=== PATIENT | female | born 1970 | race American Indian/Alaskan Native ===

== ENCOUNTER 2018-11-17 11:00 | Observation (INO) | payer OTHER ==
--- NOTE | 2018-11-17 11:37 | Emergency Department Report ---
Chief Complaint: Chest Pain Stated Complaint: L SIDE CHEST PAIN Time Seen by Provider: 11/17/18 11:33 - HPI History of Present Illness: mse completed - Exam Vital Signs: Vital Signs 11/17/18 11:33 Temperature 98.8 F Pulse Rate 72 Respiratory 20 Rate Blood Pressure 209/107 [Right] O2 Sat by Pulse 100 Oximetry MSE screening note: Focused history and physical exam performed. Due to findings the following was ordered: ED Disposition for MSE Condition: Stable
--- NOTE | 2018-11-17 11:50 | XRay Report ---
ROUTINE CHEST, TWO VIEWS: HISTORY: chest pain. The trachea, heart, mediastinal contour, lung [place] and bony thorax are unremarkable. No significant change since 12/21/17. IMPRESSION: Unremarkable chest x-ray.
[2018-11-17 12:36] LABS: Basophils % (Auto) 0.9 % (0.0-1.8); Eosinophils # (Auto) 0.5 K/mm3 (0.0-0.4); Eosinophils % (Auto) 9.5 % (0.0-4.3); Hematocrit 38.3 % (30.3-42.9); Hemoglobin 13.3 gm/dl (10.1-14.3); Lymphocytes % (Auto) 41.7 % (13.4-35.0); Mean Corpuscular HGB Conc 35 % (30-34); Mean Corpuscular Volume 95 fl (79-97); Monocytes # (Auto) 0.4 K/mm3 (0.0-0.8); Monocytes % (Auto) 7.6 % (0.0-7.3); Platelet Count 211 K/mm3 (140-440); Red Blood Count 4.02 M/mm3 (3.65-5.03)
[2018-11-17] MEDS ORDERED: ASPIRIN PO ONE (12:38)
[2018-11-17] MEDS ORDERED: NITRO-BID 2% TP ONE (12:38)
[2018-11-17 12:52] LABS: Alanine Aminotransferase 18 units/L (7-56); Albumin 3.9 g/dL (3.9-5); BUN/Creatinine Ratio 16; Blood Urea Nitrogen 13 mg/dL (7-17); Calcium 9.3 mg/dL (8.4-10.2); Hemolysis Index 13; INR 0.96 (0.87-1.13)
[2018-11-17 12:53] LABS: Partial Thromboplastin Time 32.6 Sec. (24.2-36.6)
[2018-11-17] MEDS ORDERED: TORADOL IV ONE (12:54)
[2018-11-17] MEDS ORDERED: MORPHINE IV ONE (12:54)
[2018-11-17] MEDS ORDERED: ZOFRAN IV ONE (12:54)
--- NOTE | 2018-11-17 13:24 | Emergency Department Report ---
ED Chest Pain HPI - General Chief Complaint: Chest Pain Stated Complaint: L SIDE CHEST PAIN Time Seen by Provider: 11/17/18 11:33 Source: patient Mode of arrival: Ambulatory Limitations: No Limitations - History of Present Illness Initial Comments: 48 year-old patient with a past medical history hypertension, CVA with residual right-sided deficits presents to the hospital with complaints of chest pain since yesterday. Patient was sent for Dr. Mingo Vaca's office for chest pain evaluation. Since yesterday she has had constant left-sided chest pain that is sharp in nature, rated 8/10 in intensity, worse with palpation, worse with movement, and without any alleviating factors. Patient takes aspirin 325 mg daily for previous CVA. She denies cardiac history, history of PE/DVT, edema, or leg pain. Severity scale (0 -10): 8 - Related Data Previous Rx's Medication Instructions Recorded Last Taken Type Aspirin EC [Aspirin Enteric Coated 81 mg PO QDAY #30 tablet. 12/24/17 Unknown Rx TAB] AtorvaSTATin [Lipitor] 40 mg PO QHS #30 tablet 12/24/17 Unknown Rx Lisinopril [Zestril TAB] 40 mg PO BID #60 tablet 12/24/17 Unknown Rx amLODIPine [Norvasc] 10 mg PO QDAY #30 tablet 12/24/17 Unknown Rx Allergies Allergy/AdvReac Type Severity Reaction Status Date / Time acetaminophen [From Percocet] Allergy Unknown Verified 12/21/17 21:34 alteplase Allergy Angioedema Verified 12/23/17 11:43 oxycodone [From Percocet] Allergy Unknown Verified 12/21/17 21:34 Heart Score - HEART Score History: Slightly suspicious EKG: Non-specific Age: 45-65 Risk factors: 1-2 risk factors Troponin: < normal limit HEART Score: 3 ED Review of Systems ROS: Stated complaint: L SIDE CHEST PAIN Other details as noted in HPI Comment: All other systems reviewed and negative ED Past Medical Hx - Past Medical History Previous Medical History?: Yes Hx Hypertension: Yes Hx CVA: Yes (right side weakness) Hx Congestive Heart Failure: No Hx Diabetes: No Hx Asthma: No Hx COPD: No - Surgical History Past Surgical History?: Yes Additional Surgical History: partial hysterectomy - Social History Smoking Status: Never Smoker Substance Use Type: None - Medications Home Medications: Home Medications Medication Instructions Recorded Confirmed Last Taken Type Aspirin EC [Aspirin Enteric Coated 81 mg PO QDAY #30 tablet. 12/24/17 Unknown Rx TAB] AtorvaSTATin [Lipitor] 40 mg PO QHS #30 tablet 12/24/17 Unknown Rx Lisinopril [Zestril TAB] 40 mg PO BID #60 tablet 12/24/17 Unknown Rx amLODIPine [Norvasc] 10 mg PO QDAY #30 tablet 12/24/17 Unknown Rx ED Physical Exam - General Limitations: No Limitations - Other Other exam information: General: No limitations, patient is alert in no acute distress Head exam: Atraumatic, normocephalic Eyes exam: Normal appearance ENT: Moist mucous membrane, normal oropharynx Neck exam: Normal inspection, full range of motion, no meningismus nontender Respiratory exam: Clear to auscultation bilateral, no wheezes, rales, crackles Cardiovascular: Normal rate and rhythm, normal heart sounds. Reproducible left- sided chest wall tenderness Abdomen: Soft, nondistended, and nontender, with normal bowel sounds, no rebound, or guarding Extremity: Full range of motion normal inspection no deformity, no calf tenderness or edema Back: Normal Inspection, full range of motion, no tenderness Neurologic: Alert, oriented x3, cranial nerves intact, no motor or sensory deficit Psychiatric: normal affect, normal mood Skin: Warm, dry, intact ED Course Vital Signs 11/17/18 11/17/18 11/17/18 11:33 12:06 12:16 Temperature 98.8 F Pulse Rate 72 60 62 Respiratory 20 14 18 Rate Blood Pressure 195/97 Blood Pressure 209/107 [Right] O2 Sat by Pulse 100 100 100 Oximetry 11/17/18 11/17/18 11/17/18 12:30 12:46 13:48 Temperature Pulse Rate 59 L 71 71 Respiratory 12 13 16 Rate Blood Pressure 195/97 195/97 195/97 Blood Pressure [Right] O2 Sat by Pulse 100 100 100 Oximetry 11/17/18 14:00 Temperature Pulse Rate 74 Respiratory 14 Rate Blood Pressure 195/97 Blood Pressure [Right] O2 Sat by Pulse 100 Oximetry ED Medical Decision Making - Lab Data Result diagrams: 11/17/18 12:21 11/17/18 12:21 Lab Results 11/17/18 11/17/18 11/17/18 Range/Units 12:21 12:21 12:21 WBC 4.9 (4.5-11.0) K/mm3 RBC 4.02 (3.65-5.03) M/mm3 Hgb 13.3 (10.1-14.3) gm/dl Hct 38.3 (30.3-42.9) % MCV 95 (79-97) fl MCH 33 H (28-32) pg MCHC 35 H (30-34) % RDW 13.0 L (13.2-15.2) % Plt Count 211 (140-440) K/mm3 Lymph % (Auto) 41.7 H (13.4-35.0) % [place] % (Auto) 7.6 H (0.0-7.3) % Eos % (Auto) 9.5 H (0.0-4.3) % Baso % (Auto) 0.9 (0.0-1.8) % Lymph # 2.0 (1.2-5.4) K/mm3 [place] # 0.4 (0.0-0.8) K/mm3 Eos # 0.5 H (0.0-0.4) K/mm3 Baso # 0.0 (0.0-0.1) K/mm3 Seg Neutrophils % 40.3 (40.0-70.0) % Seg Neutrophils # 2.0 (1.8-7.7) K/mm3 PT 13.4 (12.2-14.9) Sec. INR 0.96 (0.87-1.13) APTT 32.6 (24.2-36.6) Sec. D-Dimer (0-234) ng/mlDDU Sodium 140 (137-145) mmol/L Potassium 3.9 (3.6-5.0) mmol/L Chloride 104.2 (98-107) mmol/L Carbon Dioxide 26 (22-30) mmol/L Anion Gap 14 mmol/L BUN 13 (7-17) mg/dL Creatinine 0.8 (0.7-1.2) mg/dL Estimated GFR > 60 ml/min BUN/Creatinine Ratio 16 % Glucose 90 (65-100) mg/dL Calcium 9.3 (8.4-10.2) mg/dL Total Bilirubin 0.50 (0.1-1.2) mg/dL AST 18 (5-40) units/L ALT 18 (7-56) units/L Alkaline Phosphatase 49 (35-129) units/L Troponin T < 0.010 (0.00-0.029) ng/mL Total Protein 7.1 (6.3-8.2) g/dL Albumin 3.9 (3.9-5) g/dL Albumin/Globulin Ratio 1.2 % 11/17/18 Range/Units 12:21 WBC (4.5-11.0) K/mm3 RBC (3.65-5.03) M/mm3 Hgb (10.1-14.3) gm/dl Hct (30.3-42.9) % MCV (79-97) fl MCH (28-32) pg MCHC (30-34) % RDW (13.2-15.2) % Plt Count (140-440) K/mm3 Lymph % (Auto) (13.4-35.0) % [place] % (Auto) (0.0-7.3) % Eos % (Auto) (0.0-4.3) % Baso % (Auto) (0.0-1.8) % Lymph # (1.2-5.4) K/mm3 [place] # (0.0-0.8) K/mm3 Eos # (0.0-0.4) K/mm3 Baso # (0.0-0.1) K/mm3 Seg Neutrophils % (40.0-70.0) % Seg Neutrophils # (1.8-7.7) K/mm3 PT (12.2-14.9) Sec. INR (0.87-1.13) APTT (24.2-36.6) Sec. D-Dimer < 135.00 (0-234) ng/mlDDU Sodium (137-145) mmol/L Potassium (3.6-5.0) mmol/L Chloride (98-107) mmol/L Carbon Dioxide (22-30) mmol/L Anion Gap mmol/L BUN (7-17) mg/dL Creatinine (0.7-1.2) mg/dL Estimated GFR ml/min BUN/Creatinine Ratio % Glucose (65-100) mg/dL Calcium (8.4-10.2) mg/dL Total Bilirubin (0.1-1.2) mg/dL AST (5-40) units/L ALT (7-56) units/L Alkaline Phosphatase (35-129) units/L Troponin T (0.00-0.029) ng/mL Total Protein (6.3-8.2) g/dL Albumin (3.9-5) g/dL Albumin/Globulin Ratio % - EKG Data -: EKG Interpreted by Me EKG shows normal: sinus rhythm, axis (qrs 2), QRS complexes (qrsd 91), ST-T waves (no stemi/t inv) Rate: normal (65) - EKG Data When compared to previous EKG there are: no significant change - Radiology Data Radiology results: report reviewed ROUTINE CHEST, TWO VIEWS: HISTORY: chest pain. The trachea, heart, mediastinal contour, lung [place] and bony thorax are unremarkable. No significant change since 12/21/17. IMPRESSION: Unremarkable chest x-ray. - Medical Decision Making probable chest wall pain but risk factors neg trop x1, ddimer, neg cxr - Differential Diagnosis mi, unstable cp, pulm embolism ,chest wall pain Critical Care Time: No Critical care attestation.: If time is entered above; I have spent that time in minutes in the direct care of this critically ill patient, excluding procedure time. ED Disposition Clinical Impression: Left-sided chest pain, HTN (hypertension) Disposition: DC-09 OP ADMIT IP TO THIS HOSP Is pt being admited?: Yes Does the pt Need Aspirin: Yes Condition: Stable Time of Disposition: 13:23 (Dr Roger/hosp)
[2018-11-17] MEDS ORDERED: IBUPROFEN PO PRN (14:22)
[2018-11-17] MEDS ORDERED: ZOFRAN IV PRN (14:22)
[2018-11-17] MEDS ORDERED: SODIUM CHLORIDE FLUSH SYRINGE 10 ML IV PRN ×2 (14:22→14:38)
[2018-11-17] MEDS ORDERED: NITROSTAT SL PRN (14:38)
--- NOTE | 2018-11-17 14:51 | History and Physical Report ---
<SUJEY BARBER - Last Filed: 11/17/18 16:13> History of Present Illness Date of examination: 11/17/18 Date of admission: 11/17/18 13:34 Chief complaint: Left sided Chest Pain History of present illness: 48 y.o. 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 She rates her pain as 8/10, worse with palpation and exertion. There are no alleviating factors. Pt was admitted in November 2017 for suspicion of CVA. CT Head was done on 12/23/17. It was unrevealing for an acute CVA, intracrainal hemorrhage, or brain mass. An MRI brain was also done on 12/22/17 and it was unremarkable, and showed non-specific chronic white matter changes. She denies cardiac history, SOB, cough, history of PE/DVT, edema, or leg pain. Past History Past Medical History: hypertension, seizures, stroke Past Surgical History: hysterectomy Social history: no significant social history Family history: hypertension Medications and Allergies Allergies Allergy/AdvReac Type Severity Reaction Status Date / Time acetaminophen [From Percocet] Allergy Unknown Verified 12/21/17 21:34 alteplase Allergy Angioedema Verified 12/23/17 11:43 oxycodone [From Percocet] Allergy Unknown Verified 12/21/17 21:34 Home Medications Medication Instructions Recorded Confirmed Last Taken Type Divalproex Dr [DepToi DR] 250 mg PO BID 11/17/18 11/17/18 Unknown History Labetalol [Normodyne] 200 mg PO BID 11/17/18 11/17/18 Unknown History Losartan/Hydrochlorothiazide 1 each PO QDAY 11/17/18 11/17/18 Unknown History [Losartan-Hctz 100-25 mg Tab] NIFEdipine [Nifedipine ER] 60 mg PO QDAY 11/17/18 11/17/18 Unknown History Topiramate [Topamax] 100 mg PO BID 11/17/18 11/17/18 Unknown History diazePAM [Diazepam] 5 mg PO HS 11/17/18 11/17/18 Unknown History Active Meds: Active Medications Aspirin (Halfprin Ec) 81 mg PO QDAY [facility] Atorvastatin Calcium (Lipitor) 40 mg PO QHS [facility] Diazepam (Valium) 5 mg PO HS [facility] Divalproex Sodium (Depakote Dr) 250 mg PO BID [facility] Docusate Sodium (Colace) 100 mg PO BID [facility] Enoxaparin Sodium (Lovenox) 40 mg SUB-Q QDAY@2200 [facility] Ibuprofen (Motrin) 600 mg PO Q6H PRN PRN Reason: Pain, Mild (1-3) Lisinopril (Zestril) 40 mg PO BID [facility] Morphine Sulfate (Morphine) 2 mg IV Q4H PRN PRN Reason: Pain, Moderate (4-6) Stop: 11/18/18 23:59 Nitroglycerin (Nitrostat) 0.4 mg SL Q5M PRN PRN Reason: Chest Pain Ondansetron HCl (Zofran) 4 mg IV Q8H PRN PRN Reason: Nausea And Vomiting Sodium Chloride (Sodium Chloride Flush Syringe 10 Ml) 10 ml IV BID [facility] Sodium Chloride (Sodium Chloride Flush Syringe 10 Ml) 10 ml IV PRN PRN PRN Reason: LINE FLUSH Sodium Chloride (Sodium Chloride Flush Syringe 10 Ml) 10 ml IV PRN PRN PRN Reason: LINE FLUSH Topiramate (Topamax) 100 mg PO BID [facility] Review of Systems Constitutional: no weight loss, no weight gain, no fever, no chills, no night sweats Ears, nose, mouth and throat: no tinnitis, no decreased hearing, no nasal congestion, no nasal discharge Breasts: deferred Cardiovascular: chest pain, no palpitations, no rapid/irregular heart beat, no edema, no dyspnea on exertion Respiratory: shortness of breath, no cough, no hemoptysis Genitourinary Female: no dyspareunia, no dysuria, no urinary frequency, no urgency Menstruation: post hysterectomy Rectal: no pain, no incontinence, no itching Musculoskeletal: no low back pain, no shooting leg pain, no leg numbness/tingling Integumentary: no rash, no redness, no sores Neurological: no head injury, no paralysis, no weakness Psychiatric: no anxiety, no change in sleep habits, no sleep disturbances, no insomnia Endocrine: no polyphagia, no polydipsia, no polyuria, no nocturia Hematologic/Lymphatic: no easy bruising, no easy bleeding Allergic/Immunologic: no urticaria, no wheezing, no seasonal allergies Exam - Constitutional Vitals: Temp Pulse Resp BP Pulse Ox 98.8 F 74 14 195/97 100 11/17/18 11:33 11/17/18 14:00 11/17/18 14:00 11/17/18 14:00 11/17/18 14:00 General appearance: Present: no acute distress - EENT Eyes: Present: PERRL, EOM intact ENT: hearing intact, clear oral mucosa, dentition normal - Neck Neck: Present: supple, normal ROM - Respiratory Respiratory effort: normal Respiratory: bilateral: CTA - Cardiovascular Heart Sounds: Present: S1 & S2 - Extremities Extremities: no ischemia, pulses intact, No edema Peripheral Pulses: within normal limits - Abdominal General gastrointestinal: Present: soft, non-tender, normal bowel sounds Female genitourinary: Present: deferred - Rectal Rectal Exam: deferred - Integumentary Integumentary: Present: clear, warm, dry - Musculoskeletal Musculoskeletal: right sided weakness - Psychiatric Psychiatric: appropriate mood/affect, intact judgment & insight, cooperative - Neurologic Neurologic: CNII-XII intact, moves all extremities Results - Labs CBC & Chem 7: 11/17/18 12:21 11/17/18 12:21 Labs: Laboratory Last Values WBC 4.9 K/mm3 (4.5-11.0) 11/17/18 12:21 RBC 4.02 M/mm3 (3.65-5.03) 11/17/18 12:21 Hgb 13.3 gm/dl (10.1-14.3) 11/17/18 12:21 Hct 38.3 % (30.3-42.9) 11/17/18 12:21 MCV 95 fl (79-97) 11/17/18 12:21 MCH 33 pg (28-32) H 11/17/18 12:21 MCHC 35 % (30-34) H 11/17/18 12:21 RDW 13.0 % (13.2-15.2) L 11/17/18 12:21 Plt Count 211 K/mm3 (140-440) 11/17/18 12:21 Lymph % (Auto) 41.7 % (13.4-35.0) H 11/17/18 12:21 [place] % (Auto) 7.6 % (0.0-7.3) H 11/17/18 12:21 Eos % (Auto) 9.5 % (0.0-4.3) H 11/17/18 12:21 Baso % (Auto) 0.9 % (0.0-1.8) 11/17/18 12:21 Lymph # 2.0 K/mm3 (1.2-5.4) 11/17/18 12:21 [place] # 0.4 K/mm3 (0.0-0.8) 11/17/18 12:21 Eos # 0.5 K/mm3 (0.0-0.4) H 11/17/18 12:21 Baso # 0.0 K/mm3 (0.0-0.1) 11/17/18 12:21 Seg Neutrophils % 40.3 % (40.0-70.0) 11/17/18 12:21 Seg Neutrophils # 2.0 K/mm3 (1.8-7.7) 11/17/18 12:21 PT 13.4 Sec. (12.2-14.9) 11/17/18 12:21 INR 0.96 (0.87-1.13) 11/17/18 12:21 APTT 32.6 Sec. (24.2-36.6) 11/17/18 12:21 D-Dimer < 135.00 ng/mlDDU (0-234) 11/17/18 12:21 Sodium 140 mmol/L (137-145) 11/17/18 12:21 Potassium 3.9 mmol/L (3.6-5.0) 11/17/18 12:21 Chloride 104.2 mmol/L (98-107) 11/17/18 12:21 Carbon Dioxide 26 mmol/L (22-30) 11/17/18 12:21 Anion Gap 14 mmol/L 11/17/18 12:21 BUN 13 mg/dL (7-17) 11/17/18 12:21 Creatinine 0.8 mg/dL (0.7-1.2) 11/17/18 12:21 Estimated GFR > 60 ml/min 11/17/18 12:21 BUN/Creatinine Ratio 16 % 11/17/18 12:21 Glucose 90 mg/dL (65-100) 11/17/18 12:21 Calcium 9.3 mg/dL (8.4-10.2) 11/17/18 12:21 Total Bilirubin 0.50 mg/dL (0.1-1.2) 11/17/18 12:21 AST 18 units/L (5-40) 11/17/18 12:21 ALT 18 units/L (7-56) 11/17/18 12:21 Alkaline Phosphatase 49 units/L (35-129) 11/17/18 12:21 Troponin T < 0.010 ng/mL (0.00-0.029) 11/17/18 12:21 Total Protein 7.1 g/dL (6.3-8.2) 11/17/18 12:21 Albumin 3.9 g/dL (3.9-5) 11/17/18 12:21 Albumin/Globulin Ratio 1.2 % 11/17/18 12:21 Assessment and Plan Assessment and plan: 48 y.o. 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 She rates her pain as 8/10, worse with palpation and exertion. There are no alleviating factors. Pt will be admitted to Telemetry floor with plans for Lexiscan/ Stress Testing in the morning. Chest Pain- Left Sided Hypertensive Urgency Hx of Seizures Hx of CVA- right sided weakness Plan: Admit to Tele floor with continuos telemetry monitoring Today's CXR did not reveal any acute cardiopulmonary abnormalities Today's EKG preliminary read reveals borderline prolong QT interval with Left Atrial enlargement Troponin x1 negative; pending Troponin x2 D-Dimer negative Stress Testing ordered for tomorrow morning Lipid Panel pending Resume home anti-convuslant medication Monitor BP Continue anti-hypertensive meds to optimize BP Continue pain management DVT PPX- Lovenox Advance Directives: No VTE prophylaxis?: Chemical Plan of care discussed with patient/family: Yes <FABIO WRIGHT - Last Filed: 11/17/18 16:53> History of Present Illness Date of admission: 11/17/18 13:34 Past History Past Medical History: hypertension, seizures, stroke Past Surgical History: hysterectomy Social history: no significant social history Family history: hypertension (family is an elderly individual was.) Medications and Allergies Active Meds: Active Medications Aspirin (Halfprin Ec) 81 mg PO QDAY [facility] Atorvastatin Calcium (Lipitor) 40 mg PO QHS [facility] Diazepam (Valium) 5 mg PO HS [facility] Divalproex Sodium (Depakote Dr) 250 mg PO BID [facility] Docusate Sodium (Colace) 100 mg PO BID [facility] Enoxaparin Sodium (Lovenox) 40 mg SUB-Q QDAY@2200 [facility] Hydralazine HCl (Apresoline) 10 mg IV Q4HR PRN PRN Reason: Blood Pressure Ibuprofen (Motrin) 600 mg PO Q6H PRN PRN Reason: Pain, Mild (1-3) Lisinopril (Zestril) 40 mg PO BID [facility] Morphine Sulfate (Morphine) 2 mg IV Q4H PRN PRN Reason: Pain, Moderate (4-6) Stop: 11/18/18 23:59 Nitroglycerin (Nitrostat) 0.4 mg SL Q5M PRN PRN Reason: Chest Pain Ondansetron HCl (Zofran) 4 mg IV Q8H PRN PRN Reason: Nausea And Vomiting Sodium Chloride (Sodium Chloride Flush Syringe 10 Ml) 10 ml IV BID [facility] Sodium Chloride (Sodium Chloride Flush Syringe 10 Ml) 10 ml IV PRN PRN PRN Reason: LINE FLUSH Sodium Chloride (Sodium Chloride Flush Syringe 10 Ml) 10 ml IV PRN PRN PRN Reason: LINE FLUSH Topiramate (Topamax) 100 mg PO BID [facility] Review of Systems Ears, nose, mouth and throat: no nasal congestion Exam - Constitutional Vitals: Temp Pulse Resp BP Pulse Ox 98.8 F 60 14 195/97 100 11/17/18 11:33 11/17/18 15:30 11/17/18 15:30 11/17/18 15:30 11/17/18 15:30 General appearance: Present: no acute distress, well-nourished - EENT Eyes: Present: PERRL ENT: hearing intact, clear oral mucosa - Neck Neck: Present: supple, normal ROM - Respiratory Respiratory effort: normal Respiratory: bilateral: CTA - Cardiovascular Heart rate: 64 (Chest wall tenderness inf sternal) Rhythm: regular Heart Sounds: Present: S1 & S2. Absent: rub, click - Extremities Extremities: pulses symmetrical, No edema Peripheral Pulses: within normal limits - Abdominal General gastrointestinal: Present: soft, non-tender, non-distended, normal bowel sounds Female genitourinary: Present: normal - Integumentary Integumentary: Present: clear, warm, dry - Musculoskeletal Musculoskeletal: right sided weakness - Psychiatric Psychiatric: appropriate mood/affect, intact judgment & insight - Neurologic Neurologic: CNII-XII intact, moves all extremities - Allied Health Allied health notes reviewed: nursing, case management Results - Labs CBC & Chem 7: 11/17/18 12:21 11/17/18 12:21 Labs: Laboratory Last Values WBC 4.9 K/mm3 (4.5-11.0) 11/17/18 12:21 RBC 4.02 M/mm3 (3.65-5.03) 11/17/18 12:21 Hgb 13.3 gm/dl (10.1-14.3) 11/17/18 12:21 Hct 38.3 % (30.3-42.9) 11/17/18 12:21 MCV 95 fl (79-97) 11/17/18 12:21 MCH 33 pg (28-32) H 11/17/18 12:21 MCHC 35 % (30-34) H 11/17/18 12:21 RDW 13.0 % (13.2-15.2) L 11/17/18 12:21 Plt Count 211 K/mm3 (140-440) 11/17/18 12:21 Lymph % (Auto) 41.7 % (13.4-35.0) H 11/17/18 12:21 [place] % (Auto) 7.6 % (0.0-7.3) H 11/17/18 12:21 Eos % (Auto) 9.5 % (0.0-4.3) H 11/17/18 12:21 Baso % (Auto) 0.9 % (0.0-1.8) 11/17/18 12:21 Lymph # 2.0 K/mm3 (1.2-5.4) 11/17/18 12:21 [place] # 0.4 K/mm3 (0.0-0.8) 11/17/18 12:21 Eos # 0.5 K/mm3 (0.0-0.4) H 11/17/18 12:21 Baso # 0.0 K/mm3 (0.0-0.1) 11/17/18 12:21 Seg Neutrophils % 40.3 % (40.0-70.0) 11/17/18 12:21 Seg Neutrophils # 2.0 K/mm3 (1.8-7.7) 11/17/18 12:21 PT 13.4 Sec. (12.2-14.9) 11/17/18 12:21 INR 0.96 (0.87-1.13) 11/17/18 12:21 APTT 32.6 Sec. (24.2-36.6) 11/17/18 12:21 D-Dimer < 135.00 ng/mlDDU (0-234) 11/17/18 12:21 Sodium 140 mmol/L (137-145) 11/17/18 12:21 Potassium 3.9 mmol/L (3.6-5.0) 11/17/18 12:21 Chloride 104.2 mmol/L (98-107) 11/17/18 12:21 Carbon Dioxide 26 mmol/L (22-30) 11/17/18 12:21 Anion Gap 14 mmol/L 11/17/18 12:21 BUN 13 mg/dL (7-17) 11/17/18 12:21 Creatinine 0.8 mg/dL (0.7-1.2) 11/17/18 12:21 Estimated GFR > 60 ml/min 11/17/18 12:21 BUN/Creatinine Ratio 16 % 11/17/18 12:21 Glucose 90 mg/dL (65-100) 11/17/18 12:21 Calcium 9.3 mg/dL (8.4-10.2) 11/17/18 12:21 Total Bilirubin 0.50 mg/dL (0.1-1.2) 11/17/18 12:21 AST 18 units/L (5-40) 11/17/18 12:21 ALT 18 units/L (7-56) 11/17/18 12:21 Alkaline Phosphatase 49 units/L (35-129) 11/17/18 12:21 Troponin T < 0.010 ng/mL (0.00-0.029) 11/17/18 14:43 Total Protein 7.1 g/dL (6.3-8.2) 11/17/18 12:21 Albumin 3.9 g/dL (3.9-5) 11/17/18 12:21 Albumin/Globulin Ratio 1.2 % 11/17/18 12:21 Triglycerides 75 mg/dL (2-149) 11/17/18 14:43 Cholesterol 209 mg/dL (50-199) H 11/17/18 14:43 LDL Cholesterol Direct 135 mg/dL (50-130) H 11/17/18 14:43 Short CBC 11/17/18 Range/Units 12:21 WBC 4.9 (4.5-11.0) K/mm3 Hgb 13.3 (10.1-14.3) gm/dl Hct 38.3 (30.3-42.9) % Plt Count 211 (140-440) K/mm3 BMP 11/17/18 12:21 Sodium 140 Potassium 3.9 Chloride 104.2 Carbon Dioxide 26 BUN 13 Creatinine 0.8 Glucose 90 Calcium 9.3 Cardiac Enzymes 11/17/18 11/17/18 Range/Units 12:21 14:43 Troponin T < 0.010 < 0.010 (0.00-0.029) ng/mL Liver Function 11/17/18 Range/Units 12:21 Total Bilirubin 0.50 (0.1-1.2) mg/dL AST 18 (5-40) units/L ALT 18 (7-56) units/L Alkaline Phosphatase 49 (35-129) units/L Albumin 3.9 (3.9-5) g/dL - Imaging and Cardiology EKG: report reviewed (NSR, heart rate of 64/m, LVH by voltage criteria, repolarization abnormalities, EKG interpreted by me and I'll see her note for a lot of different) Imaging and Cardiology: Chest x-ray IMPRESSION: Unremarkable chest x-ray.
[2018-11-17] MEDS ORDERED: APRESOLINE IV PRN (15:11)
[2018-11-17 16:33] LABS: Chol/HDL Ratio 2.67 %
[2018-11-17] MEDS ORDERED: NON-FORMULARY (Nifedipine [Nifedipine Er] 60 MG) PO SCH (16:45)
[2018-11-17] MEDS ORDERED: NON-FORMULARY (Nifedipine [Nifedipine Er] 90 MG) PO SCH (16:45)
[2018-11-17] MEDS ORDERED: DILAUDID IV PRN (16:52)
[2018-11-17] MEDS ORDERED: DILAUDID ONE (16:56)
[2018-11-17] MEDS: PROCARDIA XL PO SCH ×2 (18:00→20:16)
[2018-11-17] MEDS: LOVENOX SUB-Q SCH ×2 (21:44→21:55)
[2018-11-17] MEDS: ZESTRIL PO SCH (21:45)
[2018-11-17] MEDS: MORPHINE IV PRN (21:46)
[2018-11-17] MEDS: TOPAMAX PO SCH (21:46)
[2018-11-17] MEDS: COLACE PO SCH (21:47)
[2018-11-17] MEDS: SODIUM CHLORIDE FLUSH SYRINGE 10 ML IV SCH (21:47)
[2018-11-17] MEDS ORDERED: VALIUM PO SCH (22:00)
[2018-11-18] MEDS ORDERED: HALFPRIN EC PO SCH (10:00)
[2018-11-18] MEDS: MORPHINE IV PRN (10:41)
[2018-11-18] MEDS: SODIUM CHLORIDE FLUSH SYRINGE 10 ML IV SCH (10:42)
--- NOTE | 2018-11-18 13:08 | Discharge Summary ---
Providers - Providers Date of Admission: 11/17/18 13:34 Date of discharge: 11/28/18 Attending physician: ALYCE ROSE Hospitalization Condition: Fair Hospital course: Patient is 48 yo with hypertension, presented with chest pain. She was seen and evaluated in Emergency Dept, Initial and repeated Troponin levels were normal. She was given Aspirin and admitted to rule out acute coronary syndrome. Stress test done the following day was normal. Chest pain due to costochondritis. She was then discharged home on Ibuprofen. Disposition: - TO HOME OR SELFCARE - Discharge Diagnoses (1) Chest pain Status: Acute (2) GERD (gastroesophageal reflux disease) Status: Acute (3) HTN (hypertension) Status: Chronic Qualifiers: Hypertension type: essential hypertension Qualified Code(s): I10 - Essential (primary) hypertension (4) History of stroke Status: Acute (5) Seizure disorder Status: Acute (6) Costochondritis, acute Status: Acute (7) Hyperlipidemia Status: Acute Core Measure Documentation - Palliative Care Palliative Care/ Comfort Measures: Not Applicable - Core Measures Any of the following diagnoses?: none Exam - Constitutional Vitals: Temp Pulse Resp BP Pulse Ox 97.8 F 65 18 95/42 97 11/18/18 08:22 11/18/18 03:41 11/18/18 08:22 11/18/18 08:22 11/18/18 03:41 Plan Activity: advance as tolerated Diet: low fat, low cholesterol, low salt Additional Instructions: 1.Follow up with PCP, Dr. Vaca in 1 week. Follow up with: [facility] [Other] - 3-5 Days Prescriptions: Aspirin EC [Aspirin Enteric Coated TAB] 81 mg PO QDAY #30 tablet Ibuprofen 400 mg PO Q6H PRN #20 tablet PRN Reason: Pain , Severe (7-10) AtorvaSTATin [Lipitor] 40 mg PO QHS #30 tablet
[2018-11-18] MEDS: COLACE PO SCH ×2 (13:34→13:51)
[2018-11-18] MEDS: TOPAMAX PO SCH ×2 (13:40→13:53)
[2018-11-18] MEDS: ZESTRIL PO SCH (13:44)
[2018-11-18] MEDS: PROCARDIA XL PO SCH ×2 (13:44→13:52)
[2018-11-18 13:45] VITALS: BP 104/66
--- NOTE | 2018-11-18 15:40 | Treadmill Report ---
TREADMILL STRESS TEST REASON FOR STUDY: Chest pain. The patient exercised on Osito protocol for 10 minutes. Resting heart rate was 55, resting blood pressure sinus rhythm with nonspecific ST-T. The patient achieved 85% of max predicted heart rate was 145 beats per minute. There was no diagnostic EKG changes suggest ischemia. Starting blood pressure is 118/75, peak blood pressure is 204/94. The patient had no EKG changes of ischemia, had some chest pain, but did not result an EKG changes. 1. Negative treadmill EKG. 2. Good exercise capacity. 3. Mild exaggerated BP response to exercise. 4. The patient had no diagnostic EKG changes or arrhythmia suggestive of ischemia. JOB# [id number] MATTHEW/BARNEY
== END 2018-11-18 14:30 | disposition home or self-care (01) ==
LOC: ED 11:00 → 4A 13:34
PROVIDERS: ADMIT Internal Medicine; ATTEND Internal Medicine
DX: R07.89 Other chest pain (principal); I16.0 Hypertensive urgency; I10 Essential (primary) hypertension; G43.409 Hemiplegic migraine, not intractable, without status migrainosus; R53.1 Weakness; Z86.73 Personal history of transient ischemic attack (TIA), and cerebral infarction without residual deficits; Z90.710 Acquired absence of both cervix and uterus; Z82.49 Family history of ischemic heart disease and other diseases of the circulatory system; Z79.82 Long term (current) use of aspirin; Z79.891 Long term (current) use of opiate analgesic; Z86.69 Personal history of other diseases of the nervous system and sense organs
CPT/HCPCS: 36415; 71046; 80053; 80061; 83036; 84484; 85025; 85379; 85610; 85730; 93005; 93010; 93017; 96374; 96375; 96376; 99284; A9270; G0378; J1170; J1885; J2270; J2405; J1650

== ENCOUNTER 2019-01-18 11:34 | Emergency (ER) | payer OTHER ==
[2019-01-18] MEDS ORDERED: ZOFRAN IV ONE (11:51)
[2019-01-18] MEDS ORDERED: DILAUDID IV ONE ×2 (11:51→14:19)
[2019-01-18] MEDS ORDERED: BENADRYL IV ONE (11:51)
[2019-01-18] MEDS ORDERED: FIORICET PO ONE (11:51)
--- NOTE | 2019-01-18 11:54 | Emergency Department Report ---
HPI - General Chief Complaint: Headache Time Seen by Provider: 01/18/19 11:48 - HPI HPI: Room 25 The patient is a 48-year-old female presenting with chief complaint of headache. Patient had a seizure this morning and afterwards developed a right frontal headache severe in nature. Patient denies nausea or vomiting. Patient states she suffers from frequent severe headaches but has not been given a diagnosis of migraines. Patient is followed by the neurologist Dr. Siu Location: [See above] Duration: [See above] Quality: [See above] Severity: [See above] Modifying factors: [see above] Context: [see above] Mode of transportation: [not driving] ED Past Medical Hx - Past Medical History Previous Medical History?: Yes Hx Hypertension: Yes Hx CVA: Yes (right side weakness) Hx Seizures: Yes - Surgical History Past Surgical History?: Yes Additional Surgical History: partial hysterectomy - Family History Family history: no significant - Social History Smoking Status: Never Smoker Substance Use Type: Alcohol (occasion) - Medications Home Medications: Home Medications Medication Instructions Recorded Confirmed Last Taken Type Divalproex [Janelle Marcus] 250 mg PO BID 11/17/18 11/17/18 Unknown History Labetalol [Labetalol 200mg TAB] 200 mg PO BID 11/17/18 11/17/18 Unknown History Losartan/Hydrochlorothiazide 1 each PO QDAY 11/17/18 11/17/18 Unknown History [Losartan-Hctz 100-25 mg Tab] NIFEdipine [Nifedipine ER] 60 mg PO QDAY 11/17/18 11/17/18 Unknown History Topiramate [Topamax] 100 mg PO BID 11/17/18 11/17/18 Unknown History diazePAM [Diazepam] 5 mg PO HS 11/17/18 11/17/18 Unknown History Aspirin EC 81 mg PO QDAY #30 tablet 11/18/18 Unknown Rx AtorvaSTATin [Lipitor] 40 mg PO QHS #30 tablet 11/18/18 Unknown Rx Ibuprofen [Ibuprofen 400] 400 mg PO Q6H PRN #20 tablet 11/18/18 Unknown Rx Codeine/Butalbital/ASA/Caffein 1 each PO Q8H PRN #20 capsule 01/18/19 Unknown Rx [Fiorinal with Codeine #3 Cap] ED Review of Systems ROS: Stated complaint: SEIZURE Other details as noted in HPI Constitutional: denies: fever Eyes: denies: eye pain ENT: denies: throat pain Respiratory: no symptoms reported Cardiovascular: denies: chest pain Endocrine: no symptoms reported Gastrointestinal: denies: nausea, vomiting Genitourinary: denies: dysuria Musculoskeletal: denies: back pain Neurological: headache Physical Exam - Physical Exam Vital Signs: Vital Signs 01/18/19 11:45 Temperature 98.5 F Pulse Rate 96 H Respiratory 20 Rate Blood Pressure 181/105 O2 Sat by Pulse 98 Oximetry Physical Exam: GENERAL: The patient is well-developed well-nourished female lying on stretcher appearing to be in moderate discomfort. [] HEENT: Normocephalic. Atraumatic. Extraocular motions are intact. Patient has moist mucous membranes. NECK: Supple. No meningitic signs are noted. Trachea midline CHEST/LUNGS: There is no respiratory distress noted. HEART/CARDIOVASCULAR: Regular. There is no tachycardia. ABDOMEN: Abdomen is soft, nontender. Patient has normal bowel sounds. There is no abdominal distention. SKIN: There is no rash. There is no edema. There is no diaphoresis. NEURO: The patient is awake, alert, and oriented. The patient is cooperative. The patient has no focal neurologic deficits. The patient has normal speech. Cranial nerves II through XII grossly intact, no drift MUSCULOSKELETAL: There is no evidence of acute injury. ED Course Vital Signs 01/18/19 11:45 Temperature 98.5 F Pulse Rate 96 H Respiratory 20 Rate Blood Pressure 181/105 O2 Sat by Pulse 98 Oximetry - Reevaluation(s) Reevaluation #1: 01/18/19 14:58 Patient states she feels improved and prefers to go home ED Medical Decision Making - Lab Data Result diagrams: 01/18/19 12:11 01/18/19 12:11 Laboratory Tests 01/18/19 01/18/19 01/18/19 12:11 12:11 12:11 WBC 3.6 L RBC 4.22 Hgb 13.6 Hct 40.3 MCV 96 MCH 32 MCHC 34 RDW 12.8 L Plt Count 242 Lymph % (Auto) 41.9 H Stewart % (Auto) 8.2 H Eos % (Auto) 5.8 H Baso % (Auto) 1.2 Lymph # 1.5 Stewart # 0.3 Eos # 0.2 Baso # 0.0 Seg Neutrophils % 42.9 Seg Neutrophils # 1.5 L Sodium 139 Potassium 3.6 Chloride 103.9 Carbon Dioxide 24 Anion Gap 15 BUN 7 Creatinine 0.7 Estimated GFR > 60 BUN/Creatinine Ratio 10 Glucose 89 Calcium 8.9 Magnesium 1.90 Valproic Acid < 2.8 L - Radiology Data Radiology results: report reviewed (CT head), image reviewed (CT head) - Differential Diagnosis migraine headache, cluster headache, hypertensive urgency, ICH Critical care attestation.: If time is entered above; I have spent that time in minutes in the direct care of this critically ill patient, excluding procedure time. ED Disposition Clinical Impression: Acute headache, Seizure Disposition: TO HOME OR SELFCARE Is pt being admited?: No Does the pt Need Aspirin: No Condition: Stable Instructions: Acute Headache (ED), Cluster Headache (ED), Migraine Headache (ED) Additional Instructions: Return to the emergency department immediately should you develop worsening symptoms, fever, inability to tolerate food or liquid or any other concerns. Prescriptions: Codeine/Butalbital/ASA/Caffein [Fiorinal with Codeine #3 Cap] 1 each PO Q8H PRN #20 capsule PRN Reason: Headache Referrals: RAE CASAREZ MD [Primary Care Provider] - 3-5 Days GARIMA SIU MD [Staff Physician] - 2-3 Days Time of Disposition: 15:01
[2019-01-18 12:25] LABS: Basophils % (Auto) 1.2 % (0.0-1.8); Eosinophils # (Auto) 0.2 K/mm3 (0.0-0.4); Eosinophils % (Auto) 5.8 % (0.0-4.3); Hematocrit 40.3 % (30.3-42.9); Hemoglobin 13.6 gm/dl (10.1-14.3); Lymphocytes # (Auto) 1.5 K/mm3 (1.2-5.4); Lymphocytes % (Auto) 41.9 % (13.4-35.0); Mean Corpuscular HGB Conc 34 % (30-34); Mean Corpuscular Volume 96 fl (79-97); Monocytes # (Auto) 0.3 K/mm3 (0.0-0.8); Monocytes % (Auto) 8.2 % (0.0-7.3); Platelet Count 242 K/mm3 (140-440); Red Blood Count 4.22 M/mm3 (3.65-5.03); Red Cell Distribution Width 12.8 % (13.2-15.2)
[2019-01-18 12:44] LABS: BUN/Creatinine Ratio 10; Blood Urea Nitrogen 7 mg/dL (7-17); Calcium 8.9 mg/dL (8.4-10.2); Hemolysis Index 6
[2019-01-18] MEDS ORDERED: DepaCON 500 MG in NACL 0.9% 100 ML IV ONE (13:00)
--- NOTE | 2019-01-18 14:03 | Cat Scan Report ---
CT HEAD WITHOUT CONTRAST: HISTORY: Right frontal headache. TECHNIQUE: Sequential 2.5mm CT images. COMPARISON: none. FINDINGS: Cerebral Parenchyma: A 1.1 cm chronic focal infarct has developed in the left ibanez radiata on image 33 which is new since the previous exam. The remaining brain parenchyma demonstrates normal attenuation. The chamberlain-white interface is well defined.. Cerebellum: Within normal limits. Brainstem: Within normal limits. Ventricles: Normal. Sella: Normal. The Extra-axial spaces: Normal. Basal Cisterns: Normal. Intracranial Hemorrhage: None. Midline Shift: None. Calvarium: Normal. Sinuses: Normal. Mastoid Air Cells: Normal. Visualized Orbits: Normal. IMPRESSION: No acute intracranial process. 1.1 cm chronic focal infarct in the left ibanez radiata.
[2019-01-18] MEDS ORDERED: DILAUDID ONE (14:22)
[2019-01-18] MEDS ORDERED: CATAPRES PO ONE (14:29)
[2019-01-18 16:05] VITALS: BP 173/89
== END 2019-01-18 16:05 | disposition home or self-care (01) ==
LOC: ED 11:34
DX: R56.9 Unspecified convulsions (principal); R51 Headache; I10 Essential (primary) hypertension; Z86.73 Personal history of transient ischemic attack (TIA), and cerebral infarction without residual deficits; Z90.710 Acquired absence of both cervix and uterus; Z79.82 Long term (current) use of aspirin; Z79.899 Other long term (current) drug therapy; Z88.6 Allergy status to analgesic agent; Z88.8 Allergy status to other drugs, medicaments and biological substances
CPT/HCPCS: 36415; 70450; 80048; 80164; 83735; 85025; 96365; 96375; 96376; 99284; J1170; J1200; J2405

== ENCOUNTER 2019-04-23 11:20 | Emergency (ER) | payer OTHER ==
[2019-04-23] MEDS ORDERED: LACOSAMIDE 200 MG in SODIUM CHLORIDE 0.9% 100 ML IV ONE (13:00)
[2019-04-23] MEDS ORDERED: MORPHINE 4 MG/1 ML INJ IV ONE (13:15)
--- NOTE | 2019-04-23 13:41 | Emergency Department Report ---
HPI <ALYCE FRIEDMAN - Last Filed: 04/23/19 19:00> - HPI HPI: 49-year-old -[place] female presents to the emergency department by EMS from home with complaint of seizures. The patient had 2 witnessed seizures at home and then had another one in route with EMS. She was given 2 mg of Ativan IV. Currently she is awake, alert and oriented. She has a past history of gout, seizures, migraines, hypertension and is in remission from breast cancer. She last had a seizure, prior to today, 3 weeks ago. She complains of some fatigue and a headache. Patient is currently on Vimpat and Briviact. Her neurologist is Dr. Zaidi at her primary care physician is Dr. Mingo Casarez. No recent travel or sick contacts at home. <PETER BRITT Clifton - Last Filed: 04/27/19 08:06> - General Chief Complaint: Seizure Time Seen by Provider: 04/23/19 12:10 ED Past Medical Hx <ALYCE FRIEDMAN - Last Filed: 04/23/19 19:00> - Past Medical History Hx Hypertension: Yes Hx CVA: Yes (right side weakness) Hx Congestive Heart Failure: No Hx Diabetes: No Hx Seizures: Yes Hx Asthma: No Hx COPD: No - Surgical History Additional Surgical History: partial hysterectomy - Social History Smoking Status: Never Smoker Substance Use Type: Alcohol <PETER BRITT Clifton - Last Filed: 04/27/19 08:06> - Medications Home Medications: Home Medications Medication Instructions Recorded Confirmed Last Taken Type Divalproex Dr [Janelle Marcus] 250 mg PO BID 11/17/18 11/17/18 Unknown History Labetalol [Labetalol 200mg TAB] 200 mg PO BID 11/17/18 11/17/18 Unknown History Losartan/Hydrochlorothiazide 1 each PO QDAY 11/17/18 11/17/18 Unknown History [Losartan-Hctz 100-25 mg Tab] NIFEdipine [Nifedipine ER] 60 mg PO QDAY 11/17/18 11/17/18 Unknown History Topiramate [Topamax] 100 mg PO BID 11/17/18 11/17/18 Unknown History diazePAM [Diazepam] 5 mg PO HS 11/17/18 11/17/18 Unknown History Aspirin EC [Halfprin EC] 81 mg PO QDAY #30 tablet 11/18/18 Unknown Rx AtorvaSTATin [Lipitor] 40 mg PO QHS #30 tablet 11/18/18 Unknown Rx Ibuprofen [Ibuprofen 400] 400 mg PO Q6H PRN #20 tablet 11/18/18 Unknown Rx Codeine/Butalbital/ASA/Caffein 1 each PO Q8H PRN #20 capsule 01/18/19 Unknown Rx [Fiorinal with Codeine #3 Cap] ED Review of Systems ROS: Stated complaint: SEIZURE Other details as noted in HPI <ALYCE FRIEDMAN - Last Filed: 04/23/19 19:00> ROS: Stated complaint: SEIZURE Other details as noted in HPI Comment: All other systems reviewed and negative Constitutional: denies: chills, fever Eyes: denies: eye pain, vision change Respiratory: denies: cough, shortness of breath Cardiovascular: denies: chest pain, palpitations Gastrointestinal: denies: abdominal pain, vomiting Musculoskeletal: denies: back pain, arthralgia Neurological: headache, other (Seizure) <PETER BRITT S - Last Filed: 04/27/19 08:06> Physical Exam - Physical Exam Vital Signs: Vital Signs 04/23/19 04/23/19 04/23/19 11:34 11:39 16:07 Temperature 98.4 F 98.4 F Pulse Rate 88 88 66 Respiratory 16 16 18 Rate Blood Pressure 174/112 Blood Pressure 174/114 164/93 [Left] O2 Sat by Pulse 99 99 95 Oximetry 04/23/19 18:21 Temperature Pulse Rate 87 Respiratory 18 Rate Blood Pressure Blood Pressure 128/77 [Left] O2 Sat by Pulse 99 Oximetry <ALYCE FRIEDMAN - Last Filed: 04/23/19 19:00> - Physical Exam Vital Signs: Vital Signs 04/23/19 04/23/19 11:34 11:39 Temperature 98.4 F 98.4 F Pulse Rate 88 88 Respiratory 16 16 Rate Blood Pressure 174/112 Blood Pressure 174/114 [Left] O2 Sat by Pulse 99 99 Oximetry <PETER BRITT S - Last Filed: 04/27/19 08:06> ED Course Vital Signs 04/23/19 04/23/19 04/23/19 11:34 11:39 16:07 Temperature 98.4 F 98.4 F Pulse Rate 88 88 66 Respiratory 16 16 18 Rate Blood Pressure 174/112 Blood Pressure 174/114 164/93 [Left] O2 Sat by Pulse 99 99 95 Oximetry 04/23/19 18:21 Temperature Pulse Rate 87 Respiratory 18 Rate Blood Pressure Blood Pressure 128/77 [Left] O2 Sat by Pulse 99 Oximetry - Reevaluation(s) Reevaluation #1: 04/23/19 19:00 Patient now awake and alert. CT scan of the brain is negative for acute disease. She can follow-up with her outpatient primary care doctor or neurology doctor. She reported to the previous physician that she has enough anticonvulsant medication <ALYCE FRIEDMAN - Last Filed: 04/23/19 19:00> Vital Signs 04/23/19 04/23/19 11:34 11:39 Temperature 98.4 F 98.4 F Pulse Rate 88 88 Respiratory 16 16 Rate Blood Pressure 174/112 Blood Pressure 174/114 [Left] O2 Sat by Pulse 99 99 Oximetry <PETER BRITT - Last Filed: 04/27/19 08:06> ED Medical Decision Making - Lab Data Result diagrams: 04/23/19 12:55 04/23/19 12:55 Vital Signs 04/23/19 04/23/19 04/23/19 11:34 11:39 16:07 Temperature 98.4 F 98.4 F Pulse Rate 88 88 66 Respiratory 16 16 18 Rate Blood Pressure 174/112 Blood Pressure 174/114 164/93 [Left] O2 Sat by Pulse 99 99 95 Oximetry 04/23/19 18:21 Temperature Pulse Rate 87 Respiratory 18 Rate Blood Pressure Blood Pressure 128/77 [Left] O2 Sat by Pulse 99 Oximetry Lab Results 04/23/19 04/23/19 04/23/19 Range/Units 12:55 12:55 12:55 WBC 5.6 (4.5-11.0) K/mm3 RBC 4.33 (3.65-5.03) M/mm3 Hgb 13.7 (10.1-14.3) gm/dl Hct 41.3 (30.3-42.9) % MCV 96 (79-97) fl MCH 32 (28-32) pg MCHC 33 (30-34) % RDW 12.3 L (13.2-15.2) % Plt Count 224 (140-440) K/mm3 Lymph % (Auto) 30.3 (13.4-35.0) % [place] % (Auto) 7.9 H (0.0-7.3) % Eos % (Auto) 2.7 (0.0-4.3) % Baso % (Auto) 0.5 (0.0-1.8) % Lymph # 1.7 (1.2-5.4) K/mm3 [place] # 0.4 (0.0-0.8) K/mm3 Eos # 0.2 (0.0-0.4) K/mm3 Baso # 0.0 (0.0-0.1) K/mm3 Seg Neutrophils % 58.6 (40.0-70.0) % Seg Neutrophils # 3.3 (1.8-7.7) K/mm3 Sodium 141 (137-145) mmol/L Potassium 3.9 (3.6-5.0) mmol/L Chloride 104.9 (98-107) mmol/L Carbon Dioxide 24 (22-30) mmol/L Anion Gap 16 mmol/L BUN 12 (7-17) mg/dL Creatinine 0.8 (0.7-1.2) mg/dL Estimated GFR > 60 ml/min BUN/Creatinine Ratio 15 % Glucose 88 (65-100) mg/dL Calcium 9.4 (8.4-10.2) mg/dL Total Bilirubin 0.50 (0.1-1.2) mg/dL AST 20 (5-40) units/L ALT 13 (7-56) units/L Alkaline Phosphatase 57 (35-129) units/L Total Creatine Kinase (30-135) units/L Total Protein 7.9 (6.3-8.2) g/dL Albumin 4.4 (3.9-5) g/dL Albumin/Globulin Ratio 1.3 % TSH 1.520 (0.270-4.200) mlU/mL Plasma/Serum Alcohol (0-0.07) % 04/23/19 04/23/19 Range/Units 12:55 12:55 WBC (4.5-11.0) K/mm3 RBC (3.65-5.03) M/mm3 Hgb (10.1-14.3) gm/dl Hct (30.3-42.9) % MCV (79-97) fl MCH (28-32) pg MCHC (30-34) % RDW (13.2-15.2) % Plt Count (140-440) K/mm3 Lymph % (Auto) (13.4-35.0) % [place] % (Auto) (0.0-7.3) % Eos % (Auto) (0.0-4.3) % Baso % (Auto) (0.0-1.8) % Lymph # (1.2-5.4) K/mm3 [place] # (0.0-0.8) K/mm3 Eos # (0.0-0.4) K/mm3 Baso # (0.0-0.1) K/mm3 Seg Neutrophils % (40.0-70.0) % Seg Neutrophils # (1.8-7.7) K/mm3 Sodium (137-145) mmol/L Potassium (3.6-5.0) mmol/L Chloride (98-107) mmol/L Carbon Dioxide (22-30) mmol/L Anion Gap mmol/L BUN (7-17) mg/dL Creatinine (0.7-1.2) mg/dL Estimated GFR ml/min BUN/Creatinine Ratio % Glucose (65-100) mg/dL Calcium (8.4-10.2) mg/dL Total Bilirubin (0.1-1.2) mg/dL AST (5-40) units/L ALT (7-56) units/L Alkaline Phosphatase (35-129) units/L Total Creatine Kinase 77 (30-135) units/L Total Protein (6.3-8.2) g/dL Albumin (3.9-5) g/dL Albumin/Globulin Ratio % TSH (0.270-4.200) mlU/mL Plasma/Serum Alcohol < 0.01 (0-0.07) % - Radiology Data Radiology results: report reviewed, image reviewed <ALYCE FRIEDMAN - Last Filed: 04/23/19 19:00> - Lab Data Result diagrams: 04/23/19 12:55 04/23/19 12:55 - Radiology Data Radiology results: report reviewed CT HEAD WITHOUT CONTRAST INDICATION / CLINICAL INFORMATION: Headache, seizure. TECHNIQUE: All CT scans at this location are performed using CT dose reduction for ALARA by means of automated exposure control. COMPARISON: Head CT 01/18/2019 and MRI brain 12/23/2017 FINDINGS: HEMORRHAGE: No evidence of intracranial hemorrhage or extra-axial fluid collecti on. EXTRA-AXIAL SPACES: Cortical sulci, sylvian fissures and basilar cisterns have an unremarkable appearance. VENTRICULAR SYSTEM: The ventricular system is of normal size and configuration. CEREBRAL PARENCHYMA: A small (11 x 6 x 6 mm) area of decreased brain parenchymal attenuation is observed in the left frontal lobe adjacent to the junction between the ibanez radiata and centrum semiovale. This represents an area of encephalomalacia secondary to small deep infarction. This was first demonstrated on head CT dated 01/18/2019. This finding has developed since MRI brain 12/23/2017. No additional areas of abnormal brain parenchymal attenuation are identified. MIDLINE SHIFT OR HERNIATION: There is no mass effect. CEREBELLUM / BRAINSTEM: Brainstem and cerebellum have an unremarkable appearance. INTRACRANIAL VESSELS:No abnormalities are identified on this noncontrast head CT. ORBITS: visualized portions of the orbits have an unremarkable appearance. SOFT TISSUES of HEAD: No significant abnormality. CALVARIUM: Evaluation of bone windows reveals no abnormalities. PARANASAL SINUSES / MASTOID AIR CELLS: Mild inflammatory mucosal changes are present within several left-sided ethmoid air cells. Paranasal sinuses are otherwise free from inflammatory mucosal disease. Mastoid air cells are normally pneumatized. IMPRESSION: 1. 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 2. No acute intracranial abnormality. - Medical Decision Making This patient presents after having a witnessed seizure at home as well as having to seizure-like activities while in the emergency department. The seizure-like activity was treated with Ativan with resolution. CT of the head did not show any bleed, shift, mass, ischemia or any other acute process. Patient's labs have been unremarkable and does not show any etiology of her symptoms. The patient was loaded with some Vimpat. Patient was monitored for multiple hours and reevaluated multiple times and it has been multiple hours since the patient last had any seizure-like activity. She is awake, alert, oriented without any focal, motor or sensory deficits in her cranial nerves are intact. For all these reasons, the patient appears safe for discharge home at this time. She has her medications to take and has been instructed to take them compliantly, as previously prescribed. She was given a referral for neurology. The patient will return to the emergency Department with any worsening of her symptoms or any acute distress. - Differential Diagnosis epilepsy, pseudoseizures, electrolyte abnormalities, TIA <PETER BRITT S - Last Filed: 04/27/19 08:06> Critical care attestation.: If time is entered above; I have spent that time in minutes in the direct care of this critically ill patient, excluding procedure time. <ALYCE FRIEDMAN - Last Filed: 04/23/19 19:00> Critical care attestation.: If time is entered above; I have spent that time in minutes in the direct care of this critically ill patient, excluding procedure time. <LORENZAPETER S - Last Filed: 04/27/19 08:06> ED Disposition Is pt being admited?: No Does the pt Need Aspirin: No <ALYCE FRIEDMAN - Last Filed: 04/23/19 19:00> <LORENZAPETER S - Last Filed: 04/27/19 08:06> Clinical Impression: Seizure disorder, HTN (hypertension), History of headache Disposition: TO HOME OR SELFCARE Condition: Stable Instructions: Hypertension (ED) Additional Instructions: Do not drive or operate motor vehicles for the next 6 months. Follow up with her primary care doctor or neurology doctor within the next 7-10 days. Return to the emergency room right away with new, worsening or different symptoms, or symptoms not present on the initial emergency room evaluation. Referrals: GARIMA SIU MD [Staff Physician] - 3-5 Days MINGO CASAREZ MD [Primary Care Provider] - 3-5 Days
[2019-04-23 13:46] LABS: Basophils % (Auto) 0.5 % (0.0-1.8); Eosinophils # (Auto) 0.2 K/mm3 (0.0-0.4); Eosinophils % (Auto) 2.7 % (0.0-4.3); Hematocrit 41.3 % (30.3-42.9); Hemoglobin 13.7 gm/dl (10.1-14.3); Lymphocytes # (Auto) 1.7 K/mm3 (1.2-5.4); Lymphocytes % (Auto) 30.3 % (13.4-35.0); Mean Corpuscular HGB Conc 33 % (30-34); Mean Corpuscular Volume 96 fl (79-97); Monocytes # (Auto) 0.4 K/mm3 (0.0-0.8); Monocytes % (Auto) 7.9 % (0.0-7.3); Platelet Count 224 K/mm3 (140-440); Red Blood Count 4.33 M/mm3 (3.65-5.03); Red Cell Distribution Width 12.3 % (13.2-15.2)
[2019-04-23 14:15] LABS: Alanine Aminotransferase 13 units/L (7-56); Albumin 4.4 g/dL (3.9-5); BUN/Creatinine Ratio 15; Blood Urea Nitrogen 12 mg/dL (7-17); Calcium 9.4 mg/dL (8.4-10.2); Hemolysis Index 0
[2019-04-23] MEDS ORDERED: HYDROmorphone 1 MG/1 ML INJ IV ONE (15:29)
--- NOTE | 2019-04-23 17:03 | Cat Scan Report ---
CT HEAD WITHOUT CONTRAST INDICATION / CLINICAL INFORMATION: Headache, seizure. TECHNIQUE: All CT scans at this location are performed using CT dose reduction for ALARA by means of automated e xposure control. COMPARISON: Head CT 01/18/2019 and MRI brain 12/23/2017 FINDINGS: HEMORRHAGE: No evidence of intracranial hemorrhage or extra-axial fluid collection. EXTRA-AXIAL SPACES: Cortical sulci, sylvian fissures and basilar cisterns have an unremarkable appear ance. VENTRICULAR SYSTEM: The ventricular system is of normal size and configuration. CEREBRAL PARENCHYMA: A small (11 x 6 x 6 mm) area of decreased brain parenchymal attenuation is obser george in the left frontal lobe adjacent to the junction between the ibanez radiata and centrum semioval e. This represents an area of encephalomalacia secondary to small deep infarction. This was first dem onstrated on head CT dated 01/18/2019. This finding has developed since MRI brain 12/23/2017. No additi onal areas of abnormal brain parenchymal attenuation are identified. MIDLINE SHIFT OR HERNIATION: There is no mass effect. CEREBELLUM / BRAINSTEM: Brainstem and cerebellum have an unremarkable appearance. INTRACRANIAL VESSELS:No abnormalities are identified on this noncontrast head CT. ORBITS: visualized portions of the orbits have an unremarkable appearance. SOFT TISSUES of HEAD: No significant abnormality. CALVARIUM: Evaluation of bone windows reveals no abnormalities. PARANASAL SINUSES / MASTOID AIR CELLS: Mild inflammatory mucosal changes are present within several l eft-sided ethmoid air cells. Paranasal sinuses are otherwise free from inflammatory mucosal disease. Mastoid air cells are normally pneumatized. IMPRESSION: 1. 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 2. No acute intracranial abnormality. Signer Name: Derrick Johnson MD Signed: 04/23/2019 4:58 PM Workstation Name: [id number]
[2019-04-23 18:22] VITALS: BP 128/77
== END 2019-04-23 19:15 | disposition home or self-care (01) ==
LOC: ED 11:20
DX: G40.909 Epilepsy, unspecified, not intractable, without status epilepticus (principal); R51 Headache
CPT/HCPCS: 36415; 70450; 80053; 82550; 84443; 85025; 93005; 93010; 96365; 96375; 99285; C9254; J1170; J2270; 80320; G0480